=== PATIENT | female | born 1965 | race African-American/Black ===

== ENCOUNTER 2017-05-16 13:38 | Emergency (ER) | payer SELFPAY ==
[~2017-05-16] VITALS: Ht 170.2 cm; Wt 107.5 kg
[2017-05-16 13:57] VITALS: Ht 170.2 cm; Wt 107.5 kg
== END 2017-05-16 14:00 | disposition left against medical advice (07) ==
LOC: FTE 13:38 → E/R 14:00
DX: Z53.21 Procedure and treatment not carried out due to patient leaving prior to being seen by health care provider (principal)